=== PATIENT | female | born 1990 | race Caucasian/White ===

== ENCOUNTER 2021-06-08 13:48 | Emergency (ER) | payer OTHER ==
[~2021-06-08] VITALS: Ht 152.4 cm; Wt 97.7 kg
[~2021-06-08 13:48] MED LIST: METF-911 PO
[2021-06-08 13:57] VITALS: BP 153/104
[2021-06-08 14:36] LABS: COVID AG,FIA SOURCE NASOPHARYNGEAL
== END 2021-06-08 15:53 | disposition home or self-care (01) ==
LOC: EMS 13:48
DX: U07.1 COVID-19 (principal)
CPT/HCPCS: 99283